=== PATIENT | female | born 1975 | race Caucasian/White ===

== ENCOUNTER → 2018-05-27 | Emergency (ER) | payer MEDICAID ==
[~2018-05-27] VITALS: Ht 154.9 cm; Wt 56.6 kg
[~2018-05-27] MED LIST: AZIT-63 PO; GUAI236S16 PO; IBUP-1984 PO; NO HOME MEDS; diphenhydrAMINE 50 mg/ml inj IV ONE; famotidine/PF 10 mg/ml inj IV ONE; ketorolac trometh. 30mg/ml inj. IV ONE; normal saline 1000ML IV soln IVB ONE; ondansetron/PF 4mg/2ml inj IV ONE
[2018-05-27 23:30] LABS: BASOPHILS % (AUTO) 0.2 % (0-1); EOSINOPHILS # (AUTO) 0.1 X10'3 (0-0.9); EOSINOPHILS % (AUTO) 0.4 % (0-6); HEMATOCRIT 39.3 % (35.0-45.0); HEMOGLOBIN 13.1 g/dl (12.0-16.0); LYMPHOCYTES # (AUTO) 1.1 X10'3 (1.1-4.8); LYMPHOCYTES % (AUTO) 8.8 % (21-51); MEAN CORPUSCULAR HEMOGLOBIN 28.9 PG (27.0-31.0); MEAN CORPUSCULAR HGB CONC 33.3 % (33.0-36.5); MEAN CORPUSCULAR VOLUME 86.9 FL (78-98); MEAN PLATELET VOLUME 8.4 FL (7.4-10.4); MONOCYTES # (AUTO) 0.6 X10'3 (0-0.9); MONOCYTES % (AUTO) 4.6 % (2-12); PLATELET COUNT 307 X10'3 (140-440); RED BLOOD COUNT 4.52 X10'6 (4.20-5.60); RED CELL DISTRIBUTION WIDTH 13.3 % (11.5-14.5); WHITE BLOOD COUNT 12.8 X10'3 (4.5-11.0)
[2018-05-27 23:42] LABS: PROTHROMBIN TIME 10.1 SECONDS (9.0-12.0)
[2018-05-27 23:43] LABS: ALANINE AMINOTRANSFERASE 25 U/L (12-78); ALBUMIN 3.7 G/DL (3.4-5.0); ALBUMIN/GLOBULIN RATIO 1.1 (1.1-1.5); ALKALINE PHOSPHATASE 80 IU/L (46-116); ANION GAP 9 (8-16); ASPARTATE AMINO TRANSFERASE 18 U/L (10-37); BILIRUBIN,TOTAL 0.2 MG/DL (0.1-1.0); BLOOD UREA NITROGEN 12 MG/DL (7-18); BUN/CREATININE RATIO 16.7 (6.6-38.0); CALCIUM 8.8 MG/DL (8.5-10.1); CHLORIDE 102 MMOL/L (99-107); CREATININE 0.72 MG/DL (0.40-0.90); GLUCOSE 118 MG/DL (70-104); POTASSIUM 3.7 MMOL/L (3.5-5.1); SODIUM 139 MMOL/L (135-145); TOTAL CARBON DIOXIDE 27.9 MMOL/L (24-32); eGFR 89 ML/MIN
[2018-05-28 00:23] LABS: URINE HCG POSITIVE (NEG)
[2018-05-28 00:34] LABS: CLARITY,URINE CLOUDY (Clear); COLOR,URINE YELLOW (Yellow); GLUCOSE, URINE NEGATIVE (Neg); KETONES,URINE 15 mg/dl (Neg); LEUKOCYTE ESTERASE ,URINE NEGATIVE (Neg); NITRITES, URINE NEGATIVE (Neg); OCCULT BLOOD,URINE MODERATE (Neg); PROTEIN,URINE NEGATIVE (Neg); UROBILINOGEN,URINE 0.2 E.U/dL (0.2-1.0)
[2018-05-28 00:37] LABS: UA COLLECTION TYPE NON-SPECIFIED
[2018-05-28 00:43] LABS: AMORPHOUS PHOSPHATES 3+; BACTERIA,URINE FEW /HPF (Neg); RBC,URINE 0-2 /HPF (0-2); SQUAMOUS EPITHELIAL CELL,UR MODERATE /LPF (FEW); WBC,URINE 0-4 /HPF (0-4)
[2018-05-28 01:23] LABS: BETA HCG,QUANTITATIVE 4369 mIU/ml
[2018-05-28 06:30] VITALS: BP 119/89
--- NOTE | 2018-05-28 06:48 | NUR ---
IV REMOVED FROM L [facility], PT REFUSING TO HAVE ANOTHER PLACED AT THIS TIME. WANTED IV OUT BECAUSE IT WAS "HURTING HER AND MAKING HER HOT AND SWEATY".
--- NOTE | 2018-05-28 06:54 | NUR ---
Pt denies any needs at this time.
--- NOTE | 2018-05-28 07:12 | NUR ---
unable to locate patient during RN rounds.
--- NOTE | 2018-05-28 07:12 | NUR ---
Patient eloped.Dr. moreira aware.
--- NOTE | 2018-05-28 07:15 | NUR ---
PT WAS ACCEPTED AT [facility] ER TO ER CODE 3 TRANSFER, WHEN PT SUBSIQUENTLY ELOPED WITH OUT NOTICE. PT WERE ABOUTS UNKOWN. [id number]
== END | disposition home or self-care (01) ==
LOC: ER 22:16
DX: O00.90 Unspecified ectopic pregnancy without intrauterine pregnancy (principal); Z79.2 Long term (current) use of antibiotics; Z79.899 Other long term (current) drug therapy
CPT/HCPCS: 36415; 76856; 80053; 81001; 81025; 84702; 85025; 85610; 96374; 96375; 99284; J1885; J2405; J7030; J1200; J3490

== ENCOUNTER 2021-11-15 02:31 | Emergency (ER) | payer MEDICAID ==
[~2021-11-15] VITALS: Ht 154.9 cm; Wt 5.5 kg
[~2021-11-15 02:31] MED LIST changes: -AZIT-63 PO; +AZIT-83 PO; -diphenhydrAMINE 50 mg/ml inj IV ONE; -famotidine/PF 10 mg/ml inj IV ONE; -ketorolac trometh. 30mg/ml inj. IV ONE; -normal saline 1000ML IV soln IVB ONE; -ondansetron/PF 4mg/2ml inj IV ONE
[2021-11-15 02:40] VITALS: BP 127/78
== END 2021-11-15 06:04 | disposition left against medical advice (07) ==
LOC: ER 02:31
DX: M54.2 Cervicalgia (principal); Z53.21 Procedure and treatment not carried out due to patient leaving prior to being seen by health care provider

== ENCOUNTER 2022-12-28 21:05 | Emergency (ER) | payer MEDICAID ==
[~2022-12-28] VITALS: Ht 157.5 cm; Wt 56.3 kg
[~2022-12-28 21:05] MED LIST changes: +AZIT-164 PO; -AZIT-83 PO
[2022-12-28 21:08] VITALS: BP 120/72; PULSE 104; RESP 16; TEMP 98.3; O2SAT 98
[2022-12-28] MEDS ORDERED: ACET-1008 PO (22:33)
== END 2022-12-28 23:04 | disposition home or self-care (01) ==
LOC: ER 21:06
DX: S01.01XA Laceration without foreign body of scalp, initial encounter (principal); W19.XXXA Unspecified fall, initial encounter; Y93.89 Activity, other specified; Y92.89 Other specified places as the place of occurrence of the external cause; Y99.8 Other external cause status
CPT/HCPCS: 99282